=== PATIENT | male | born 1975 | race Caucasian/White ===

== ENCOUNTER 2016-05-23 12:47 | Emergency (ER) | payer SELFPAY ==
[~2016-05-23] VITALS: Ht 162.6 cm; Wt 88.0 kg
[2016-05-23 13:07] VITALS: Ht 162.6 cm; Wt 88.0 kg
--- NOTE | 2016-05-23 13:56 | ERD ---
ER Documentation Chief Complaint Date/Time DATE: 05/23/16 TIME: 13:[address] AND HEAD ACHE X3 DAYS HPI This is a 41 year old male who presents to the emergency department a complaint of sore throat and headache for the past 3 days. Patient states he has taken Advil improves his headache for a couple of hours but then it returns. States his has been sick with congestion. Denies any fevers or chills. Denies any nausea vomiting or vision changes. ROS All systems reviewed and are negative except as per history of present illness. Medications Home Meds Active Scripts Amoxicillin* (Amoxicillin*) 500 Mg Cap, 500 MG PO TID for 10 Days, CAP Prov:YOUSUF SOTELO PA-C 05/23/16 Naproxen* (Naprosyn*) 500 Mg Tablet, 500 MG PO BID Y for PAIN AND/OR INFLAMMATION, #30 TAB Prov:YOUSUF SOTELO PA-C 05/23/16 Hydrocodone/Acetaminophen ([place] 10-325 Tablet) 1 Each Tablet, 1 TAB PO Q6H Y for PAIN, #10 TAB Prov:YOUSUF SOTELO PA-C 05/23/16 Allergies Allergies: Coded Allergies: No Known Allergy (Unverified , 07/10/15) PMhx/Soc History of Surgery: No Anesthesia Reaction: No Hx Neurological Disorder: No Hx Respiratory Disorders: No Hx Cardiac Disorders: No Hx Psychiatric Problems: No Hx Miscellaneous Medical Probl: No Hx Alcohol Use: No Hx Substance Use: No Hx Tobacco Use: No Smoking Status: Never smoker Physical Exam Vitals Vital Signs Date Time Temp Pulse Resp B/P Pulse Ox O2 Delivery O2 Flow Rate FiO2 05/23/16 13:07 98.8 78 16 134/79 97 Physical Exam Const: No acute distress Head: Atraumatic Eyes: Normal Conjunctiva. PERRLA. EOM intact. ENT: Ears TMs normal. Nose no drainage. Throat with erythema and tonsillar exudate right-sided posterior pharynx Neck: Full range of motion..~ No meningismus. Resp: Clear to auscultation bilaterally Cardio: Regular rate and rhythm, no murmurs Abd: Soft, non tender, non distended. Normal bowel sounds Skin: No petechiae or rashes Neur: Awake and alert. No gait ataxia. Psych: Normal Mood and Affect Procedures/MDM This 41-year-old male who presents to the emergency department today complaining of sore throat and headache for the past 3 days. Patient physical exam he does have tonsillar exudate. Patient has absence of cough and I will treat the patient for strep pharyngitis.Low suspicion for retropharyngeal abscess, peritonsillar abscess. Patient also has a headache. He has no focal neurologic deficits. He is no gait ataxia. He denies any vision changes. Patient 's blood pressure is not significantly elevated. I not feel the patient requires laboratory work or imaging at this time. He is afebrile and otherwise well-appearing. I have low suspicion for acute hemorrhage, mass, abscess, meningitis sepsis or severe bacterial infection. Patient will be given a prescription for [place] for severe headache as well as Naprosyn. I will also give him a prescription for amoxicillin to treat strep pharyngitis. At this time the patient is stable for discharge and outpatient management. Patient should follow up with their PCP in the next 1-2 days. They may return to the emergency department sooner for any persistent or worsening of symptoms. Patient understood and agreed with the plan. Departure Diagnosis: Primary Impression: Strep pharyngitis Additional Impression: Headache Headache type: unspecified Headache chronicity pattern: episodic headache Intractability: not intractable Qualified Code: R51 - Nonintractable episodic headache, unspecified headache type Condition: YOUSUF Figueredo PA-C May 23, 2016 13:56
[2016-05-23] MEDS ORDERED: NAPR-260 PO (13:57)
[2016-05-23] MEDS ORDERED: HYDR-902 PO (13:57)
[2016-05-23] MEDS ORDERED: AMO500 PO (13:57)
== END 2016-05-23 14:14 | disposition home or self-care (01) ==
LOC: FTE 12:47
DX: J02.0 Streptococcal pharyngitis (principal); R51 Headache
CPT/HCPCS: 99284